=== PATIENT | male | born 1940 | race Caucasian/White ===

== ENCOUNTER 2023-06-05 20:55 | Inpatient (IN) ==
[2023-06-05] MEDS ORDERED: 0.9 % SODIUM CHLORIDE 1,000 ML IV ONE (21:07)
[2023-06-05 22:54] LABS: Basophils # (Auto) 0.04 K/mcL (0.00-0.30); Basophils % (Auto) 0.6 % (0.0-2.0); Eosinophils % (Auto) 1.6 % (0.0-7.0); Hematocrit 33.1 % (40.1-51.0); Hemoglobin 11.5 g/dL (13.7-17.5); Lymphocytes # (Auto) 1.73 K/mcL (1.50-4.80); Lymphocytes % (Auto) 27.2 % (15.5-49.0); Mean Corpuscular HGB Conc 34.7 g/dL (31.0-36.0); Mean Platelet Volume 9.4 fL (8.8-12.5); Monocytes # (Auto) 0.99 K/mcL (0.10-0.90); Monocytes % (Auto) 15.6 % (1.0-12.0); Neutrophils % (Auto) 54.7 % (38.0-78.0); Platelet Count 278 K/mcL (140-440); RBC 3.85 M/mcL (4.63-6.08); Red Cell Distribution Width 14.1 % (11.5-14.5); WBC 6.4 K/mcL (4.5-11.0)
[2023-06-05 23:22] LABS: ALT/SGPT 17 U/L (<40); AST/SGOT 19 U/L (<40); Albumin 4.4 gm/dL (3.2-5.2); Albumin/Globulin Ratio 1.9 (1.0-2.3); Alkaline Phosphatase 75 U/L (39-117); Bilirubin,Total 0.3 mg/dL (0.1-1.0); Blood Urea Nitrogen 12 mg/dL (8-23); Calcium 9.2 mg/dL (8.6-10.4); Carbon Dioxide 21 mmol/L (22-30); Chloride 86 mmol/L (96-108); Globulin 2.3 gm/dL (2.2-3.7); Glomerular Filtration Rate 88; Glucose 128 mg/dL (70-105)
[2023-06-06] MEDS ORDERED: ACETAMINOPHEN 500 MG TABLET PO ONE (00:12)
[2023-06-06] MEDS ORDERED: traZODone HCL 100 MG TABLET PO ONE (00:13)
[2023-06-06 06:51] LABS: POC Calcium, Ionized 1.13 (1.16-1.32); POC Creatinine 0.6 (0.6-1.2); POC Potassium 4.6 (3.3-5.1)
[2023-06-06 07:55] LABS: Thyroid Stimulating Hormone 2.67 uIU/mL (0.27-5.01)
[2023-06-06 08:21] LABS: Blood Urea Nitrogen 11 mg/dL (8-23); Calcium 8.7 mg/dL (8.6-10.4); Carbon Dioxide 22 mmol/L (22-30); Chloride 92 mmol/L (96-108); Glomerular Filtration Rate 94; Glucose 115 mg/dL (70-105)
[2023-06-06] MEDS ORDERED: SENNOSIDES 1 TABLET PO PRN (08:21)
[2023-06-06] MEDS ORDERED: POLYETHYLENE GLYCOL 3350 17 GM PACKET PO PRN (08:21)
[2023-06-06] MEDS ORDERED: IPRATROPIUM/ALBUTEROL 3 ML AMPUL.NEB NEB PRN (08:21)
[2023-06-06] MEDS ORDERED: DEXTROSE 50% 50 ML VIAL IV PRN (08:21)
[2023-06-06] MEDS ORDERED: POTASSIUM CHLORIDE 20 MEQ TABLET PO PRN ×2 (08:21)
[2023-06-06] MEDS ORDERED: MAGNESIUM SULFATE 2 GM/50 ML BAG IV PRN (08:21)
[2023-06-06] MEDS ORDERED: ONDANSETRON 4 MG/2 ML VIAL IV PRN (08:21)
[2023-06-06] MEDS ORDERED: ACETAMINOPHEN 325 MG TABLET PO PRN (08:21)
[2023-06-06] MEDS ORDERED: LABETALOL HCL 20 MG/4 ML VIAL IV PRN (08:21)
[2023-06-06] MEDS ORDERED: DEXTROSE 31 GM ORAL.SUSP PO PRN (08:21)
[2023-06-06] MEDS ORDERED: POTASSIUM CHLORIDE 40 MEQ in DEXTROSE 5% IN WATER 500 ML IV PRN (08:21)
[2023-06-06] MEDS ORDERED: DEXTROSE 5% IN WATER 500 ML IV ONE ×2 (08:25→16:19)
[2023-06-06 08:43] LABS: POC Calcium, Ionized 1.17 (1.16-1.32); POC Creatinine 0.6 (0.6-1.2); POC Potassium 4.6 (3.3-5.1)
[2023-06-06] MEDS ORDERED: DESMOPRESSIN ACETATE 2 MCG in 0.9 % SODIUM CHLORIDE 50 ML IV SCH (09:00)
[2023-06-06 09:47] LABS: Blood Urea Nitrogen 10 mg/dL (8-23); Carbon Dioxide 25 mmol/L (22-30); Chloride 91 mmol/L (96-108); Glomerular Filtration Rate 94; Glucose 124 mg/dL (70-105)
[2023-06-06 10:08] LABS: Appearance,Urine CLEAR (Clear); Bilirubin,Urine Negative (Negative); Color,Urine COLORLESS; Culture Indicated,Urine No; Glucose,Urine (UA) Negative (Negative); Ketones,Urine Negative (Negative); Leukocyte Esterase,Urine Negative /uL (Negative); Nitrate,Urine Negative (Negative); Protein,Urine Negative (Negative); Specific Gravity,Urine 1.003 (1.000-1.035); Urine Blood Negative (Negative); Urobilinogen,Urine Negative
[2023-06-06] MEDS: ENOXAPARIN 40 MG/0.4 ML SYRINGE SQ SCH (10:27)
[2023-06-06] MEDS: DOCUSATE SODIUM 100 MG CAPSULE PO SCH ×2 (10:27→20:26)
[2023-06-06 10:58] LABS: POC Calcium, Ionized 1.13 (1.16-1.32); POC Creatinine 0.6 (0.6-1.2); POC Potassium 4.5 (3.3-5.1)
[2023-06-06 12:09] LABS: Blood Urea Nitrogen 10 mg/dL (8-23); Calcium 8.6 mg/dL (8.6-10.4); Carbon Dioxide 24 mmol/L (22-30); Chloride 91 mmol/L (96-108); Glomerular Filtration Rate 88; Glucose 205 mg/dL (70-105)
[2023-06-06] MEDS: INSULIN LISPRO 1 UNIT/0.01 ML UNIT SQ SCH ×3 (12:27→20:25)
[2023-06-06] MEDS ORDERED: NITROGLYCERIN 0.4 MG TAB.SUBL SL PRN (13:17)
[2023-06-06 14:46] LABS: POC Calcium, Ionized 1.18 (1.16-1.32); POC Creatinine 0.6 (0.6-1.2); POC Potassium 4.4 (3.3-5.1)
[2023-06-06] MEDS ORDERED: DESMOPRESSIN ACETATE 1 MCG in 0.9 % SODIUM CHLORIDE 50 ML IV SCH (16:21)
[2023-06-06 17:45] LABS: POC Calcium, Ionized 1.16 (1.16-1.32); POC Creatinine 0.6 (0.6-1.2); POC Potassium 4.6 (3.3-5.1)
[2023-06-06] MEDS: METOPROLOL TARTRATE 50 MG TABLET PO SCH (20:25)
[2023-06-06] MEDS: POLYETHYLENE GLYCOL 3350 17 GM PACKET PO SCH (20:26)
[2023-06-06] MEDS: hydrALAZINE 25 MG TABLET PO SCH (20:26)
[2023-06-06] MEDS: traZODone HCL 100 MG TABLET PO SCH (20:26)
[2023-06-06 21:23] LABS: POC Calcium, Ionized 1.19 (1.16-1.32); POC Creatinine 0.6 (0.6-1.2); POC Potassium 4.3 (3.3-5.1)
[2023-06-06 22:57] LABS: Blood Urea Nitrogen 16 mg/dL (8-23); Calcium 8.6 mg/dL (8.6-10.4); Carbon Dioxide 24 mmol/L (22-30); Chloride 91 mmol/L (96-108); Glomerular Filtration Rate 101; Glucose 117 mg/dL (70-105)
[2023-06-07] MEDS: INSULIN LISPRO 1 UNIT/0.01 ML UNIT SQ SCH ×4 (07:01→21:06)
[2023-06-07] MEDS: HYDROcodone/APAP 5/325MG TABLET PO PRN ×2 (07:04→19:15)
[2023-06-07 07:29] LABS: Basophils # (Auto) 0.06 K/mcL (0.00-0.30); Eosinophils # (Auto) 0.16 K/mcL (0.00-0.70); Eosinophils % (Auto) 2.6 % (0.0-7.0); Hematocrit 32.1 % (40.1-51.0); Hemoglobin 10.5 g/dL (13.7-17.5); Lymphocytes # (Auto) 1.27 K/mcL (1.50-4.80); Lymphocytes % (Auto) 20.4 % (15.5-49.0); Mean Cell Volume 89.4 fL (80.0-100.0); Mean Corpuscular HGB Conc 32.7 g/dL (31.0-36.0); Mean Platelet Volume 9.5 fL (8.8-12.5); Monocytes # (Auto) 1.09 K/mcL (0.10-0.90); Monocytes % (Auto) 17.5 % (1.0-12.0); Neutrophils % (Auto) 58.2 % (38.0-78.0); Platelet Count 228 K/mcL (140-440); RBC 3.59 M/mcL (4.63-6.08); Red Cell Distribution Width 14.6 % (11.5-14.5); WBC 6.2 K/mcL (4.5-11.0)
[2023-06-07 07:33] LABS: ALT/SGPT 12 U/L (<40); AST/SGOT 14 U/L (<40); Albumin 3.6 gm/dL (3.2-5.2); Albumin/Globulin Ratio 1.7 (1.0-2.3); Alkaline Phosphatase 61 U/L (39-117); Bilirubin,Direct < 0.2 mg/dL (0-0.3); Bilirubin,Total 0.3 mg/dL (0.1-1.0); Blood Urea Nitrogen 13 mg/dL (8-23); Calcium 8.8 mg/dL (8.6-10.4); Carbon Dioxide 23 mmol/L (22-30); Chloride 92 mmol/L (96-108); Globulin 2.1 gm/dL (2.2-3.7); Glomerular Filtration Rate 94; Glucose 106 mg/dL (70-105); Lactate Dehydrogenase 124 U/L (135-225); Phosphorous 3.5 mg/dL (2.5-4.5); Triglycerides 70 mg/dL (<150); Uric Acid 2.4 mg/dL (2.5-8.0)
[2023-06-07] MEDS: ATORVASTATIN 40 MG TABLET PO SCH (09:06)
[2023-06-07] MEDS: TAMSULOSIN 0.4 MG CAPSULE PO SCH (09:06)
[2023-06-07] MEDS: amLODIPine 10 MG TABLET PO SCH (09:06)
[2023-06-07] MEDS: LISINOPRIL 20 MG TABLET PO SCH (09:07)
[2023-06-07] MEDS: ENOXAPARIN 40 MG/0.4 ML SYRINGE SQ SCH (09:07)
[2023-06-07] MEDS: hydrALAZINE 25 MG TABLET PO SCH ×2 (09:07→20:47)
[2023-06-07] MEDS: METOPROLOL TARTRATE 50 MG TABLET PO SCH ×2 (09:07→20:49)
[2023-06-07] MEDS: MEMANTINE 10 MG TABLET PO SCH (09:07)
[2023-06-07] MEDS: DOCUSATE SODIUM 100 MG CAPSULE PO SCH ×2 (09:07→20:48)
[2023-06-07] MEDS: OXYBUTYNIN CHLORIDE 5 MG TAB.XL.24H PO SCH (09:08)
[2023-06-07] MEDS: POLYETHYLENE GLYCOL 3350 17 GM PACKET PO SCH ×2 (09:08→21:06)
[2023-06-07 12:54] LABS: Blood Urea Nitrogen 15 mg/dL (8-23); Calcium 8.5 mg/dL (8.6-10.4); Carbon Dioxide 24 mmol/L (22-30); Chloride 89 mmol/L (96-108); Glomerular Filtration Rate 94; Glucose 201 mg/dL (70-105)
[2023-06-07] MEDS ORDERED: SODIUM CHLORIDE 1 GM TABLET PO SCH (13:14)
[2023-06-07 19:03] LABS: Blood Urea Nitrogen 16 mg/dL (8-23); Calcium 8.5 mg/dL (8.6-10.4); Carbon Dioxide 24 mmol/L (22-30); Chloride 91 mmol/L (96-108); Glomerular Filtration Rate 94; Glucose 184 mg/dL (70-105)
[2023-06-07] MEDS: traZODone HCL 100 MG TABLET PO SCH (20:49)
[2023-06-07] MEDS: SODIUM CHLORIDE 1 GM TABLET PO SCH (20:50)
[2023-06-08 06:57] LABS: Blood Urea Nitrogen 13 mg/dL (8-23); Calcium 8.7 mg/dL (8.6-10.4); Carbon Dioxide 24 mmol/L (22-30); Chloride 92 mmol/L (96-108); Glomerular Filtration Rate 94; Glucose 116 mg/dL (70-105)
[2023-06-08] MEDS: INSULIN LISPRO 1 UNIT/0.01 ML UNIT SQ SCH ×3 (07:19→18:37)
[2023-06-08] MEDS ORDERED: FUROSEMIDE 40 MG/4 ML VIAL IV ONE (08:08)
[2023-06-08] MEDS: ENOXAPARIN 40 MG/0.4 ML SYRINGE SQ SCH (08:53)
[2023-06-08] MEDS: SODIUM CHLORIDE 1 GM TABLET PO SCH (08:54)
[2023-06-08] MEDS: MEMANTINE 10 MG TABLET PO SCH (08:55)
[2023-06-08] MEDS: ATORVASTATIN 40 MG TABLET PO SCH (08:56)
[2023-06-08] MEDS: amLODIPine 10 MG TABLET PO SCH (08:57)
[2023-06-08] MEDS: DOCUSATE SODIUM 100 MG CAPSULE PO SCH (08:57)
[2023-06-08] MEDS: OXYBUTYNIN CHLORIDE 5 MG TAB.XL.24H PO SCH (08:58)
[2023-06-08] MEDS: TAMSULOSIN 0.4 MG CAPSULE PO SCH (09:00)
[2023-06-08] MEDS: LISINOPRIL 20 MG TABLET PO SCH (09:00)
[2023-06-08] MEDS: hydrALAZINE 25 MG TABLET PO SCH (09:00)
[2023-06-08] MEDS: POLYETHYLENE GLYCOL 3350 17 GM PACKET PO SCH (09:01)
[2023-06-08] MEDS: METOPROLOL TARTRATE 50 MG TABLET PO SCH (09:01)
[2023-06-08 10:10] LABS: Blood Urea Nitrogen 12 mg/dL (8-23); Carbon Dioxide 23 mmol/L (22-30); Chloride 91 mmol/L (96-108); Glomerular Filtration Rate 94; Glucose 147 mg/dL (70-105)
[2023-06-08 11:35] VITALS: TEMP 98.4
[2023-06-08 14:18] LABS: Blood Urea Nitrogen 14 mg/dL (8-23); Calcium 8.9 mg/dL (8.6-10.4); Carbon Dioxide 26 mmol/L (22-30); Chloride 92 mmol/L (96-108); Glomerular Filtration Rate 88; Glucose 145 mg/dL (70-105)
[2023-06-08 17:21] VITALS: O2SAT 94
== END 2023-06-08 17:48 | disposition home or self-care (01) | DRG 641 ==
LOC: ED 20:55 → ICU 06-06 07:53 → MEDSUR 06-07 16:52
PROVIDERS: ADMIT Internal Medicine; ATTEND Internal Medicine